=== PATIENT | female | born 1965 | race Two or more races ===

== ENCOUNTER 2024-04-22 18:03 | Emergency (ER) | payer OTHER ==
[~2024-04-22] VITALS: Ht 160 cm; Wt 50.8 kg
[2024-04-22] MEDS ORDERED: 0.9 % SODIUM CHLORIDE 500 ML IV ONE (19:45)
[2024-04-22 20:38] LABS: HEMATOCRIT 37.2 % (36.0-45.00); MEAN CELL VOLUME 83.1 fL (80.00-100.00); PLATELET COUNT 319 K/uL (150-450); RED BLOOD COUNT 4.48 M/uL (4.00-6.00); RED CELL DISTRIBUTION WIDTH 12.6 % (11.5-14.5)
[2024-04-22 20:42] LABS: URINE APPEARANCE Clear; URINE BILIRRUBIN Negative (NEGATIVE); URINE BLOOD Negative; URINE COLOR Yellow; URINE GLUCOSE Negative (NEGATIVE); URINE LEUKOCYTE Negative; URINE NITRATE Negative; URINE PROTEIN Negative (NEGATIVE)
[2024-04-22 20:45] LABS: URINE RBC 3.6 uL (0.0-20.8)
[2024-04-22 20:53] LABS: URINE EPITHELIAL CELLS 0.7 uL (0.0-38.8); URINE KETONE 40 (NEGATIVE); URINE WBC 0.4 uL (0.0-23.2)
[2024-04-22 21:14] LABS: ALBUMIN 3.8 gm/dL (3.4-5.0); BILIRUBIN TOTAL 0.47 mg/dL (0.3-1.2); CALCIUM 9.6 mg/dL (8.5-10.1); CREATININE SERUM 0.61 mg/dL (0.55-1.02); GFR 100.05; GLOBULINA 3.8 G/DL (2.4-3.5); POTASSIUM 4.27 mEq/L (3.5-5.1); TOTAL PROTEIN 7.6 gm/dL (6.4-8.2)
== END 2024-04-23 02:28 | disposition home or self-care (01) ==
LOC: ER 18:05
PROVIDERS: Preventive Medicine Public Health & General Preventive Medicine
DX: R19.00 Intra-abdominal and pelvic swelling, mass and lump, unspecified site (principal); K52.9 Noninfective gastroenteritis and colitis, unspecified; Z88.2 Allergy status to sulfonamides; Z91.013 Allergy to seafood